=== PATIENT | female | born 2000 | race Caucasian/White ===

== ENCOUNTER 2018-04-17 08:33 | Inpatient (IN) | payer MEDICAID ==
[~2018-04-17] VITALS: Ht 162.6 cm; Wt 80.5 kg
[2018-04-17 08:59] VITALS: BP 124/67; PULSE 93; Ht 162.6 cm; Wt 80.5 kg
[2018-04-17] MEDS ORDERED: PNV11TAB PO (09:01)
--- NOTE | 2018-04-17 10:25 | HP ---
Date/Time of Note Date/Time of Note DATE: 04/17/18 TIME: 10:23 OB - History Hx of Present Free Text/Dictation April 17, 2018 Last Menstrual Period: Apr 17, 2018 : 1 Para: 0 Other Concerns: 17-year-old with IUP at 26 weeks and 3 days presented with complaint of contractions and vaginal bleeding. care with [facility]. records are available. Patient due date by 13 weeks ultrasound, 2018. Rh+. She denies any complication during the course. Patient had a ultrasound that showed no cervical length with evidence of bulging of sac inside the vagina. Vaginal exam showed complete cervical dilatation with bulging bag of water, baby is a structure was palpable through amniotic sac. Bedside ultrasound showed transverse presentation. heart tracing appropriate for gestational age confirmed by bedside ultrasound Past Family/Social History * Past Medical, Surgical, Family and Obstetric Histories reviewed from chart. OB Admission Exam Vital Signs Vital Signs Vital Signs Date Temp Pulse Resp B/P (MAP) Pulse Ox O2 O2 Flow FiO2 Time Delivery Rate 04/17/18 98.7 93 124/67 08:59 (86) Physical Exam HEENT: WNL Lungs: Clear Abdomen: WNL Cervical Dilatation: 10cm Effacement: 100% Membranes: Intact Heart Rate: 120's Accelerations: Accelerations Present (Difficulty to obtaining toco due to patient's body habitus. ) OB Assessment/Plan Reason for admission: labor Other Assessment: IUP at 26 weeks and 3 days labor Patient will be admitted for tocolysis Start magnesium for neuro prophylaxis and tocolysis Start steroid Ultrasound for estimated weight and presentation done, transverse presentation, EFW 2 pounds and 11 ounces Gestational age by ultrasound correlate with patient's due date. Perinatology/neonatology/anesthesia consultation. UA, labs, CBC Keep the patient n.p.o. Continuous bedrest DVT prophylaxis Plan of care discussed with the patient and RN Because the patient with perinatologist Dr. Merchant, who agreed to the above plan Patient will be placed in Trendelenburg position I have a long discussion with using Tristanian interpretation about prognosis and short and long-term outcome of the after delivery I discussed with patient regarding possibility of emergency . risk of including risk of. Infection, bleeding, damage to surrounding structures including bowel and bladder and risk of blood transfusion including but not limited to blood borne infection including HIV, hepatitis B and C and transfusion reaction discussed the patient in detail Patient asked to blood transfusion in case of emergency. Patient verbalized understanding all the above risks. She verbalized understanding risk of scar, need for future sections I also discussed about risk of poor outcome in case of delivery including risk of long admission to the NICU, long-term and short-term morbidity mortality intubation, complications of prematurity discussed with patient. Patient had been counseled as well by fiberglass ski maker who called in for consultation All questions were answered to patient's best satisfaction Patient and her verbalized understanding and did not have any further question section consent obtained Anesthesia consult placed for evaluation of possible emergency section for general anesthesia in that case scenario steroid and magnesium started. Hoping to extend delivery for at least 48 hours after last dose of steroid. Patient and her verbalized understanding. RN, charge nurse staff in OR team as well as NICU team are all aware DEONTE BRANDT MD Apr 17, 2018 10:25
[2018-04-17] MEDS ORDERED: MAGNESIUM SULFATE 4 GM/100 ML 100 ML ONE (10:41)
[2018-04-17] MEDS ORDERED: LACTATED RINGER'S 1,000 ML IV PRN (10:44)
[2018-04-17] MEDS ORDERED: LACTATED RINGER'S 1,000 ML IV SCH (10:44)
[2018-04-17] MEDS ORDERED: METHYLERGONOVINE 0.2 MG INJ IM PRN ×2 (11:00→14:30)
[2018-04-17] MEDS ORDERED: IBUPROFEN 600 MG TAB PO PRN (11:00)
[2018-04-17] MEDS ORDERED: OXYTOCIN 30 UNITS/LR 500 ML IV SCH ×4 (11:00→15:00)
[2018-04-17] MEDS ORDERED: DEXAMETHASONE 4 MG/ML 5 ML INJ IM SCH (11:00)
[2018-04-17] MEDS ORDERED: LIDOCAINE 1% (MPF) 30 ML INJ INJ PRN (11:00)
[2018-04-17] MEDS ORDERED: BUTORPHANOL 2 MG INJ IV PRN (11:00)
[2018-04-17] MEDS ORDERED: MAGNESIUM SULFATE 4 GM/100 ML 100 ML IVPB ONE (11:00)
[2018-04-17] MEDS ORDERED: AMPICILLIN 2 GM/NS (PMX) 100 ML IV ONE (11:00)
[2018-04-17] MEDS ORDERED: MISOPROSTOL 200 MCG TAB PR PRN ×3 (11:00→14:30)
[2018-04-17] MEDS ORDERED: CARBOPROST 250 MCG INJ IM PRN ×3 (11:00→14:30)
[2018-04-17] MEDS ORDERED: OXYTOCIN 30 UNITS/LR 500 ML IV PRN ×3 (11:00→14:30)
[2018-04-17] MEDS: MAGNESIUM SULFATE 20 GM/500 ML 500 ML IV SCH ×2 (11:16→13:20)
--- NOTE | 2018-04-17 11:17 | PREAC ---
Date/Time of Note Date/Time of Note DATE: 04/17/18 TIME: 11:16 Anesthesia Eval and Record Evaluation Time Pre-Procedure Interview DATE: 04/17/18 TIME: 11:16 Age 17 Sex female NPO: 8 hrs Preoperative diagnosis labor with transverse lie Planned procedure C/S Past Medical History Past Medical History: None Surgery & Anesthesia Issues No known issue Meds Anticoagulation: No Beta Naya within 24 hr: No Reason Beta Naya not given: Pt. not on B-Naya Reported Medications [id number] ( 19) 1 Each Tablet, 1 TAB PO DAILY, TAB 04/17/18 Current Medications Lactated Ringer's 1,000 ml @ 125 mls/hr Q8H IV Last administered on 04/17/18at 11:02; Admin Dose 125 MLS/HR; Start 04/17/18 at 10:44 Ampicillin 100 ml @ 100 mls/hr ONCE ONCE IV Last administered on 04/17/18at 10:59; Admin Dose 100 MLS/HR; Start 04/17/18 at 11:00; Stop 04/17/18 at 11:59 Ampicillin 50 ml @ 100 mls/hr Q4H IV ; Start 04/17/18 at 15:00 Butorphanol Tartrate (Stadol) 2 mg Q2H PRN IV .PAIN; Start 04/17/18 at 11:00 Lidocaine (Xylocaine 1% (Mpf)) 30 ml ONCE PRN INJ .EPISIOTOMY; Start 04/17/18 at 11:00 Oxytocin/Lactated Ringer's 500 ml @ 500 mls/hr ONCE POST IV ; Start 04/17/18 at 11:00 Oxytocin/Lactated Ringer's 500 ml @ 125 mls/hr POST IV ; Start 04/17/18 at 11:00 Ibuprofen (Motrin) 600 mg ONCE PRN PO .PAIN 1-5; Start 04/17/18 at 11:00 Lactated Ringer's 1,000 ml @ 2,000 mls/hr Q30M PRN IV .ANESTHESIA; Start 04/17/18 at 10:44 Oxytocin/Lactated Ringer's 500 ml @ 0 mls/hr ONCE PRN IV .VAGINAL BLEEDING; Start 04/17/18 at 11:00 Methylergonovine Maleate (Methergine) 0.2 mg ONCE PRN IM .VAGINAL BLEEDING; Start 04/17/18 at 11:00 Carboprost Tromethamine (Hemabate) 250 mcg ONCE PRN IM .VAGINAL BLEEDING; Start 04/17/18 at 11:00 Misoprostol (Cytotec) 1,000 mcg ONCE PRN AK .VAGINAL BLEEDING; Start 04/17/18 at 11:00 Dexamethasone (Decadron) 6 mg Q12H IM Last administered on 04/17/18at 11:09; Admin Dose 6 MG; Start 04/17/18 at 11:00; Stop 04/18/18 at 23:01 Magnesium Sulfate 100 ml @ 200 mls/hr ONCE ONCE IVPB Last administered on 04/17/18at 11:02; Admin Dose 200 MLS/HR; Start 04/17/18 at 11:00; Stop 04/17/18 at 11:29 Magnesium Sulfate 500 ml @ 50 mls/hr Q10H IV ; Start 04/17/18 at 11:00 Meds reviewed: Yes Allergies Coded Allergies: naproxen (Verified Allergy, Unknown, 04/17/18) peanut (Verified Allergy, Unknown, 04/17/18) Allergies Reviewed: Yes Labs/Studies Labs Reviewed: Reviewed by anesthesiologist Result Diagram: 04/17/18 1059 Laboratory Tests 04/17/18 10:59 test: Positive Pre-procedure Exam Last vitals Vital Signs Date Temp Pulse Resp B/P (MAP) Pulse Ox O2 O2 Flow FiO2 Time Delivery Rate 04/17/18 98.7 93 124/67 08:59 (86) Airway: Adequate mouth opening Mallampati: Mallampati II Teeth: Normal Lung: Normal Heart: Normal ASA Physical Status ASA physical status: 2 Emergency: None Planned Anesthetic General/MAC: ETT Neuraxial: Spinal Planned Pain Management Parenteral pain med Pre-operative Attestations Prior to commencing anesthesia and surgery, the patient was re-evaluated, there was verification of: *The patient's identity *The results of appropriate recent lab work and preoperative vital signs *The above evaluation not changing prior to induction *Anesthetic plan, risk benefits, alternative and complications discussed with patient/family; questions answered; patient/family understands, accepts and wishes to proceed. CHANTELLE ALVARENGA MD Apr 17, 2018 11:17
[2018-04-17] MEDS ORDERED: METOCLOPRAMIDE 10 MG INJ ONE (11:21)
[2018-04-17] MEDS ORDERED: OXYTOCIN 30 UNITS/LR 500 ML IV ONE (11:21)
[2018-04-17] MEDS ORDERED: ONDANSETRON 4 MG INJ ONE (11:21)
[2018-04-17] MEDS ORDERED: OXYTOCIN 10 UNIT INJ ONE ×2 (11:21→14:08)
[2018-04-17] MEDS ORDERED: morphine SULFATE/PF (10 MG/10 ML) INJ ONE (11:21)
[2018-04-17] MEDS ORDERED: CEFAZOLIN 2 GM/50 ML (PMX) 50 ML IVPB SCH (12:00)
[2018-04-17] MEDS ORDERED: FENTAnyl 2MCG/ML-ROPIV 0.2% 0 ML ONE (12:12)
[2018-04-17] MEDS ORDERED: EPHEDrine SULFATE 50 MG/5 ML SYG IV PRN ×2 (12:30→14:30)
[2018-04-17] MEDS ORDERED: NALOXONE (0.4 MG/ML) INJ IV PRN ×2 (12:30→14:30)
[2018-04-17] MEDS ORDERED: ONDANSETRON 4 MG INJ IV PRN ×2 (12:30→14:30)
[2018-04-17] MEDS ORDERED: DIPHENHYDRAMINE 50 MG INJ IV PRN ×2 (12:30→14:30)
[2018-04-17] MEDS ORDERED: FENTAnyl 2MCG/ML-ROPIV 0.2% 100 ML BAG EPI SCH (12:30)
[2018-04-17] MEDS ORDERED: EPHEDrine 25 MG/5 ML SYG ONE (14:07)
--- NOTE | 2018-04-17 14:29 | OPR ---
Operative Report Planned Procedure Free Text/Dictation 04/17/2018 Procedure date Apr 17, 2018 Procedure(s) Primary emergency section via pfanenstiel skin incision Performed by see signature line Stemhole Borer: KENNETH RUSS MD Anesthesiologist: CHANTELLE ALVARENGA MD Pre-procedure diagnosis 1. IUP at 26 weeks and 3 days 2. labor, failed tocolysis Post-Procedure Post-procedure diagnosis labor IUP at 26 weeks and 3 days Findings Live Baby premature baby. not reported at the time of section and even after completion of C/S. Baby cried shortly after . NICU team were available at the time of section. Intubated by NICU team Estimated Blood Loss: 600 - 700 mls Specimen(s) cord blood and placenta sent to pathology Grafts/Implant(s) none Complication(s) none Pt Condition post procedure: stable Disposition: PACU Procedure Description 17-year-old with IUP at 26 weeks and 3 days and care with [facility] presented with complaint of vaginal bleeding and cramps and was noted to be in labor. She was completely dilated with bulging bag of water. Baby was noted to be in transverse presentation. She underwent tocolysis with magnesium and received a dose of dexamethasone for lung maturity. She failed tocolysed with magnesium continued to have painful uterine contractions and had increased vaginal bleeding and bloody show. Exam showed fully cervical dilation with bulging bag of water retention consistent with labor with failed tocolysis. She was cannulated for emergency primary low transverse section. Discussed the patient about risk and benefit of section. Risk of infection, bleeding, damage to surrounding structures including bowel and bladder and risk of blood transfusion including but not limited to blood borne infection including HIV, hepatitis B and C and transfusion reaction discussed with the patient in detail informed consent was obtained. Also discussed with the patient that the baby is premature. Increased risk of NICU admission, short-term and long-term disability, mortality and morbidity discussed with the patient in detail and informed consent was obtained. Patient was then taken to the OR and received adequate spinal anesthesia. Then was prepped and draped in the dorsal supine position with a leftward tilt. heart tone prior to scrubbing of the abdomen was in 130s 140s. Then the abdomen was described in a sterile fashion and prepped and draped. After timeout and assurance with adequate spinal anesthesia a Pfannenstiel skin incision was made using scalpel was carried down to the underlying layer of fascia using scalpel and Bovie. Then the superior aspect of fascial incision was grasped using a [place], was elevated and was dissected off of the rectus muscle sharply. Then the inferior aspect of fascial incision in a similar fashion was grasped and was dissected off of the parameters muscle in a similar fashion. Rectus muscle was in the midline. Parietal peritoneum was identified. Parietal peritoneum entered bluntly. Intra- abdominal cavity entered without any complication. Hilario retractor was placed. Bladder flap was created. Lower uterine segment was opened using scalpel. Incision was noted to be old. The placenta. Immediately the amniotic bag was identified and was ruptured. Clear amniotic fluid noted. lower extremities were grasped and was brought to the incision and by gentle traction along the maternal body axis until the axillary for some of the baby was identified gentle traction was applied. Then the anterior shoulder and anterior arm and then posterior arm and then using Mauriceau maneuver. The head was delivered. Immediately nose and mouth was suctioned. Delayed cord clamp advised by attending supervising deputy performed after 32nd. Cord blood was obtained. Then the baby was immediately handed to the NICU team. Then the placenta was delivered spontaneously and was sent to pathology. Cord blood was obtained. Then the uterus was cleared of all clots and debris's. The uterine incision repaired using 2 layer, and the first layer used for hemostasis using 1-0 Monocryl and the second layer used for imbrication the same suture. Then the hemostasis of the incision obtained and completed by an extra [id number] suture in the right coronary of the incision. After reassurance about excellent hemostasis then the laps were removed and gutters were cleared of all clots and debris's. And the parietoperitoneum was reapproximated using 2-0 Vicryl in continuous fashion and the rectus muscle was reapproximated using 2-0 Vicryl in a continuous fashion. Then hemostasis of the sub-fascia and excess muscle was obtained. Then the fascia was reapproximated using 1-0 Monocryl in a continuous fashion. Then the subcutaneous tissue was irrigated using warm normal saline and the subcutaneous tissue was reapproximated using 2- 0 plain gut. The skin was reapproximated using Endsorb. Steri-Strip was applied over the incision. Fundus was firm at the end of the delivery. Sponge lap and needle counts were correct x2. Patient was then transferred to recovery room in stable condition. DEONTE BRANDT MD Apr 17, 2018 14:29
[2018-04-17] MEDS ORDERED: morphine SULFATE/PF (10 MG/10 ML) INJ SPINAL ONE (14:30)
[2018-04-17] MEDS ORDERED: morphine 2 MG INJ IV PRN ×2 (14:30)
[2018-04-17] MEDS ORDERED: LANOLIN HPA 1 PKT TOP PRN (14:30)
[2018-04-17] MEDS ORDERED: METHYLERGONOVINE 0.2 MG TAB PO PRN (14:30)
[2018-04-17] MEDS ORDERED: NACL 0.9% 3 ML SYG IV SCH (14:30)
[2018-04-17] MEDS ORDERED: AMPICILLIN 1 GM/NS (PMX) 50 ML IV SCH (15:00)
[2018-04-17 17:23] VITALS: BP 131/63; PULSE 105; RESP 20
[2018-04-17 19:45] VITALS: BP 117/64; PULSE 106; RESP 18
--- NOTE | 2018-04-17 21:17 | PAC ---
Date/Time of Note Date/Time of Note DATE: 04/17/18 TIME: 21:17 Post-Anesthesia Notes Post-Anesthesia Note Last documented vital signs Vital Signs Date Temp Pulse Resp B/P (MAP) Pulse Ox O2 O2 Flow FiO2 Time Delivery Rate 04/17/18 97.8 106 18 117/64 98 Room Air 19:45 (81) Activity: WNL Respiratory function: WNL Cardiovascular function: WNL Mental status: Baseline Pain reasonably controlled: Yes Hydration appropriate: Yes Nausea/Vomiting absent: Yes CHANTELLE ALVARENGA MD Apr 17, 2018 21:17
[2018-04-18 00:15] VITALS: BP 117/57; PULSE 108; RESP 19
[2018-04-18 04:00] VITALS: BP 106/58; PULSE 98; RESP 18
[2018-04-18] MEDS: LACTATED RINGER'S 1,000 ML IV SCH ×3 (05:35→21:30)
[2018-04-18 08:00] VITALS: BP 114/59; PULSE 101; RESP 16
[2018-04-18] MEDS ORDERED: INFLUENZA VIRUS VACCINE 0.5 ML (DISPENSING) IM* ONE (09:00)
[2018-04-18] MEDS: HYDROCODONE/APAP (5/325) TAB PO PRN ×2 (14:13→18:35)
[2018-04-18 15:30] VITALS: BP 120/73; PULSE 104; RESP 17
[2018-04-18 20:00] VITALS: BP 120/69; PULSE 101; RESP 18
[2018-04-18] MEDS ORDERED: CELECOXIB 200 MG CAP PO SCH (21:00)
[2018-04-18] MEDS: HYDROCODONE/APAP (5/325) TAB PO SCH (21:46)
[2018-04-19 03:56] VITALS: BP 110/68; PULSE 98; RESP 19
[2018-04-19] MEDS: LACTATED RINGER'S 1,000 ML IV SCH ×3 (05:30→21:30)
[2018-04-19] MEDS: HYDROCODONE/APAP (5/325) TAB PO SCH ×3 (05:41→21:55)
[2018-04-19 08:30] VITALS: BP 118/75; PULSE 85; RESP 18
--- NOTE | 2018-04-19 11:40 | PN ---
Date/Time of Note Date/Time of Note DATE: 04/19/18 TIME: 11:37 OB Subjective Subjective Subjective Late entry note. Patient seen on 04/18/2018 at 1930 POD#1 Patient is doing well. She denies nausea, vomiting, shortness of breath, chest pain, headache. She has been ambulating without difficulty, tolerating regular diet. Pain is well controlled on current medications OB Objective Objective Objective General: AAO X 3, comfortable, NAD, appropriate mood and affect. Heart: RRR +S1, +S2, no murmurs. Lungs: Clear to auscultation (B/L), no rales, rhonchi or wheezing. ABD: +BS. Soft, non-tender. Uterus 2 cm below umbilicus Incision: Clear, dry, intact. No erythema, drainage or induration. Flank: No CVA tenderness (B/L) LE: Mild edema. No clubbing, cyanosis, thigh or calf tenderness (B/L). Homans 'sign is negative OB Assessment/Plan Other plan: 17 years old 1 para [id number] s/p primary delivery at 26 weeks and 3 days for transverse presentation in labor POD#1 - AF, VSS - Contraception methods with R/B/A/FR discussed - Continue care CLARI DELVALLE Apr 19, 2018 11:40
--- NOTE | 2018-04-19 11:41 | PN ---
Date/Time of Note Date/Time of Note DATE: 04/19/18 TIME: 11:40 OB Subjective Subjective Subjective POD#2 Patient is doing well. She denies nausea, vomiting, shortness of breath, chest pain, headache. She has been ambulating without difficulty, tolerating regular diet. Pain is well controlled on current medications OB Objective Objective Objective VS - Last 72 Hours, by Label Date Temp Pulse Resp B/P (MAP) Pulse Ox O2 O2 Flow FiO2 Time Delivery Rate 04/19/18 98.9 98 19 110/68 Room Air 03:56 (82) 04/18/18 98.6 101 18 120/69 Room Air 20:00 (86) 04/18/18 99.4 104 17 120/73 Room Air 15:30 (89) 04/18/18 98.8 101 16 114/59 95 Room Air 08:00 (77) 04/18/18 99.0 98 18 106/58 98 Room Air 04:00 (74) 04/18/18 99.0 108 19 117/57 96 Room Air 00:15 (77) 04/17/18 97.8 106 18 117/64 98 Room Air 19:45 (81) 04/17/18 98.5 105 20 131/63 97 Room Air 17:23 (85) 04/17/18 98.7 93 124/67 08:59 (86) General: AAO X 3, comfortable, NAD, appropriate mood and affect. ABD: +BS. Soft, non-tender. Uterus 2 cm below umbilicus Incision: Clear, dry, intact. No erythema, drainage or induration. Flank: No CVA tenderness (B/L) LE: Mild edema. No clubbing, cyanosis, thigh or calf tenderness (B/L). Homans 'sign is negative Laboratory Tests Test 04/18/18 06:18 04/19/18 06:12 Lab Scanned Report REFERENCE LAB [id number] White Blood Count 11.6 10^3/ul Red Blood Count 3.56 10^6/ul Hemoglobin 10.1 g/dl Hematocrit 31.3 % Mean Corpuscular Volume 87.9 fl Mean Corpuscular Hemoglobin 28.4 pg Mean Corpuscular Hemoglobin Concent 32.3 g/dl Red Cell Distribution Width 13.6 % Platelet Count 224 10^3/UL Mean Platelet Volume 10.5 fl Immature Granulocytes % 0.600 % Neutrophils % 73.4 % Lymphocytes % 19.0 % Monocytes % 6.3 % Eosinophils % 0.4 % Basophils % 0.3 % Nucleated Red Blood Cells % 0.0 /100WBC Immature Granulocytes # 0.070 10^3/ul Neutrophils # 8.5 10^3/ul Lymphocytes # 2.2 10^3/ul Monocytes # 0.7 10^3/ul Eosinophils # 0.1 10^3/ul Basophils # 0.0 10^3/ul Nucleated Red Blood Cells # 0.0 10^3/ul OB Assessment/Plan Other plan: 17 years old 1 para [id number] s/p primary delivery at 26 weeks and 3 days for transverse presentation in labor POD#2 - AF, VSS - Contraception methods with R/B/A/FR discussed - Continue care - Discharge home tomorrow - Rx and instruction given - Follow up in one and 6 weeks CLARI DELVALLE Apr 19, 2018 11:41
--- NOTE | 2018-04-19 11:42 | DS ---
Date/Time of Note Date/Time of Note DATE: 04/19/18 TIME: 11:41 Obstetrical Discharge Record Final Diagnosis Final Diagnosis: delivered Other Final Diagnosis 17 years old 1 para [id number] s/p primary delivery at 26 weeks and 3 days for transverse presentation in labor POD#2. course is unremarkable. She is ambulating and tolerating regular diet. She has been voiding without difficulty. Pain is controlled on current medication. - AF, VSS - Contraception methods with R/B/A/FR discussed - Continue care - Discharge home tomorrow - Rx and instruction given - Follow up in one and 6 weeks Section Section: Primary Primary Indication Transverse presentation Condition on Discharge Physical Assessment Last Vitals: Vital Signs Date Temp Pulse Resp B/P (MAP) Pulse Ox O2 O2 Flow FiO2 Time Delivery Rate 04/19/18 98.9 98 19 110/68 Room Air 03:56 (82) 04/18/18 95 08:00 Voiding: Yes Bowel Movement: Yes Breast: Soft, non-tender Fundus: Firm Calf Tenderness: No Patient Condition: Stable CLARI DELVALLE Apr 19, 2018 11:42
[2018-04-19] MEDS: ACETAMINOPHEN 325 MG TAB PO PRN ×2 (11:51→20:09)
[2018-04-19 16:00] VITALS: BP 110/72; PULSE 98; RESP 18
[2018-04-19 20:00] VITALS: BP 112/84; PULSE 64; RESP 19
[2018-04-20 04:00] VITALS: BP 123/70; PULSE 85; RESP 16
[2018-04-20] MEDS: HYDROCODONE/APAP (5/325) TAB PO SCH (06:09)
[2018-04-20] MEDS: ACETAMINOPHEN 325 MG TAB PO PRN (08:26)
[2018-04-20] MEDS ORDERED: DIPHTH/TET/ACEL PERTUSS (ADULT) 0.5 ML VIAL IM* ONE (12:00)
== END 2018-04-20 14:50 | disposition home or self-care (01) | DRG 788 ==
LOC: OBT 08:33 → L-D 08:34 → OBT 10:20 → L-D 10:25 → PP1 16:47
PROVIDERS: ADMIT Obstetrics & Gynecology; ATTEND Obstetrics & Gynecology
PROC: 10D00Z1 Extraction of Products of Conception, Low, Open Approach (ICD-10-PCS; principal; 2018-04-17 13:30)
DX: O60.13X0 Preterm labor second trimester with preterm delivery third trimester, not applicable or unspecified (principal); Z3A.26 26 weeks gestation of pregnancy; Z37.0 Single live birth
CPT/HCPCS: 76815; 81001; 85025; 85610; 85730; 86592; 86850; 86900; 86901; 87086; 87340; 88307; 90715; G0463; J0290; J0690; J1100; J2274; J2405; J2590; J2765; J3010; J3475; J7120